=== PATIENT | female | born 1945 | race Caucasian/White ===

== ENCOUNTER 2022-02-18 05:45 | Day surgery (SDC) | payer MEDICARE, OTHER ==
[~2022-02-18] VITALS: Ht 165.1 cm; Wt 77.3 kg
[~2022-02-18 05:45] MED LIST: ASCORBIC ACID500 MG PO; CALCIUM500 MG; FLAXSEED OIL1000 M1; LEVOTHYROXINE75 MCG PO; LORAZEPAM1 MG PO; PRAVACHOL40 MG PO; PRAVASTATIN SOD10 MG PO; PREDNISONE20 MG PO; TYLENOL EXTRA500 MG PO; VITAMIN D1000 UNIT
[2022-02-18] MEDS ORDERED: MELOXICAM15 MG PO ×2 (06:09)
--- NOTE | 2022-02-18 07:22 | NUR ---
VISTED WITH PT PRIOR TO SURGERY. PT SHARED HOW LONG THEY HAD BEEN WAITING FOR THE SURGERY. WAS WITH PT IN ROOM. DR WILSON CAME IN TO TAKE PT TO SURGERY. PRAYED WITH PT AND DR WILSON.
--- NOTE | 2022-02-18 08:47 | NUR ---
02/18/22 0847 Loly Mejía 0838 PATIENT ARRIVES TO PACU UNRESPONSIVE TO PAIN. ORAL AIRWAY AND NASAL AIRWAY IN RIGHT NOSTRIL IN PLACE. RESP EVEN AND UNLABORED WITH INTERVENTION, MASK AT 10 LITERS. 0843 PATIENT OPENS EYES WITH VERBAL STIMULI. FOLLOWS COMMANDS TO OPEN MOUTH. ORAL AIRWAY AND NASAL AIRWAY REMOVED. RESP EVEN AND UNLABORED, MASK DECREASED TO 6 LITERS. PATIENT DENIES PAIN OR NAUSEA. BACK TO SLEEP WHEN NOT STIMULATED.
[2022-02-18] MEDS ORDERED: XARELTO10 MG PO ×2 (08:56)
[2022-02-18] MEDS ORDERED: SENNA LAX8.6 MG PO ×2 (08:57)
[2022-02-18] MEDS ORDERED: GABAPENTIN300 MG PO ×2 (08:57)
[2022-02-18] MEDS ORDERED: OXYCODONE HCL5 MG PO ×2 (08:57)
--- NOTE | 2022-02-18 09:33 | NUR ---
LYNDA 0920: PT IS BACK TO DS FROM PACU. SHE IS BACK TO HER BASELINE. SHE IS GIVEN ICE WATER. CALL LIGHT WITHIN REACH. SHE IS ENCOURAGED TO CONTINUE WITH DEEP BREATHS. NO ADDITIONAL NEEDS OR CONCERNS AT THIS TIME.
--- NOTE | 2022-02-18 09:44 | NUR ---
PT IS GIVEN INCENTIVE SPIROMETER AND EDUCATED ON USE PER ORDERS. PT IS ABLE TO VERBALIZE UNDERSTANDING ON PROPER USE OF THE INCENTIVE SPIROMETER.
--- NOTE | 2022-02-18 10:30 | NUR ---
PT TOLERATES A SIP OF WATER. SHE IS REPORTING LOWER BACK PAIN, HOB IS RAISED TO SEE IF THIS HELPS. HER SPINAL HAS COMPLETELY RESOLVED AT THIS TIME. SHE HAS WATER ON BEDSIDE. CALL LIGHT WITHIN REACH. SHE REPORTS PAIN 2/10 IN RIGHT HIP, DENIES NEEDING PAIN MEDS AT THIS TIME. NO ADDITIONAL NEEDS OR CONCERNS AT THIS TIME.
--- NOTE | 2022-02-18 11:32 | NUR ---
LE 1030: PT REPORTS FEELING SOMETHING SAFETY INTERN BETWEEN HER LEGS. IT IS DETERMINED THAT THE PT HAS VOIDED IN HER BED. WITH A 2ND RN, PT IS TRANSFERRED TO A BEDSIDE COMMODE, UPON STANDING THE PT'S BLADDER STARTS TO EMPTY WITHOUT THE PT BEING ABLE TO FEEL ANY FULLNESS IN HER BLADDER OR THE URGE TO GO. PT'S BED IS CLEANED UP, SHE IS PUT INTO A CLEAN GOWN. HER LULY HOSE AND SOCKS ARE CHANGED TO CLEAN ONES. SHE IS CLEANED UP USING BABY WIPES AND GIVEN A DEPENDS JUST IN CASE. HER CRYO CUFF DOES HAVE TO BE RINSED IN THE SINK DUE TO BEING SOILED WITH SOME URINE AND DRIED OFF WITH A TOWEL. PT IS RESITUATED BACK IN BED TO A COMFORTABLE POSITION. SHE WAS NAUSEATED UPON SITTING UP AT THE EDGE OF THE BED PRIOR TO TRANSFERRING TO A BEDSIDE COMMODE, WHILE SITTING ON THE COMMODE SHE STATES THAT IT GETS BETTER.
--- NOTE | 2022-02-18 11:52 | NUR ---
LYNDA 1145: PT REPORTS THAT HER PAIN IS AT A 3/10, BUT DENIES NEEDING ANYTHING FOR PAIN. SHE REPORTS THAT HER NAUSEA IS RESOLVED. SHE WOULD LIKE TO TRY SALTINE CRACKERS. HER IS GOING TO GO HOME AND COME BACK AROUND 1300. DC CRITERIA IS REVIEWED, PT AND ARE EDUCATED THAT SHE NEEDS TO HAVE SENSATION OF HER BLADDER BACK AND HAVE THE URGE TO VOID TO COUNT VOIDING.
--- NOTE | 2022-02-18 13:05 | NUR ---
1240-PATIENT STATES SHE NEEDS HER DEPENDS CHANGED. STATES "I PEE EVERYTIME I COUGH". PATEINT UP TO BEDSIDE COMMODE WITH 2 RN ASSIST. GAIT UNSTEADY. 1250-PATIENT VOIDED 300ML. NEW CHUCKS PAD LAYED ON BED AND NEW DEPENDS. 1255-PATIENT BACK TO BED. RESP EVEN AND UNLABORED. RATES PAIN 4/10 AND THIS IS TOLERABLE FOR HER AT THIS TIME. DENIES NAUSEA. SMALL AMOUNT OF DRAINAGE ON THE UPPER DRESSING. CRYO CUFF IN PLACE AND RUNNING. CALL LIGHT WITHIN REACH.
--- NOTE | 2022-02-18 13:07 | OR ---
[facility] [address], [place] [address] Signed DATE OF OPERATION: 02/18/2022 SURGEON: Mansoor Jenkins MD PREOPERATIVE DIAGNOSIS: Severe degenerative joint disease, right hip. POSTOPERATIVE DIAGNOSIS: Severe degenerative joint disease, right hip. PROCEDURE PERFORMED: Right total hip arthroplasty with Maikel. STATISTICS INTERN: Jade Peguero PA-C. Jade was present and critical for all portions of procedure. ANESTHESIA: Spinal. BLOOD LOSS: 175 mL. IMPLANTS: Katie size 5 stem with a 52 mm cup and -2.5 head. BRIEF HISTORY: Jenny is a 76-year-old female with progressive worsening of osteoarthritis. Risks and benefits of operative treatment were discussed with her and she elected to proceed. PROCEDURE IN DETAIL: Once consent was obtained, she was taken to the operating room. After adequate anesthesia she was placed in the left lateral decubitus position. All downside pressure points were well padded. An axillary roll was placed. The hip was then prepped and draped in a standard sterile fashion. Three stab incisions were made over the posterior aspect of the iliac crest and the computer array was placed. The hip was then approached through standard anterior lateral approach, was taken through skin and subcutaneous tissue. IT band was divided longitudinally along the anterior margin of the femur. The vastus lateralis was divided along the anterior margin of the femur to the tip of the trochanter. This was then subperiosteal elevated around to the level of Electronically Signed By: MANSOOR JENKINS MD 02/18/22 1307 PATIENT NAME: JENNY CLAYTON OPERATIVE REPORT DATE OF : 43 REPORT #: [id number] PHYSICIAN: MANSOOR JENKINS MD PCP: EDWAR GRIJALVA MD REPORT IS CONFIDENTIAL AND NOT TO BE RELEASED WITHOUT AUTHORIZATION [facility] [address], [place] [address] Signed the lesser trochanter. The capsule was then split and elevated off the anterior neck. A partial capsulotomy was performed. The capsule was then released from the undersurface of the greater trochanter. The hip was then verified with the computer. The hip was then dislocated and the femoral neck cut made as per the presurgical plan. The femoral head was passed off the table. The periacetabular soft tissue was removed and the fine anatomic points of the acetabulum were recorded with the computer. The robot was then brought in and the 52 reamer was reamed to the predetermined depth. I then over-reamed just a little bit. Once this was accomplished, a 52 cup was impacted in 40 degrees of abduction and 23 degrees of anteversion. The cup was quite tight and the liner was then impacted. The attention was then turned to the femoral proximal stem. This was opened using Libretto cutter followed by the Juli awl. It was then sequentially broached from a 3 to a 5 with a 5, found to be well fitting. The high offset neck and -2.5 head were positioned. The hip was then reduced, taken through range of motion and found to be stable. She was slightly long according to the computer, so we dislocated and removed the trials. The final stem was impacted until it was well-seated and a -5 head was impacted. The hip was reduced. Leg lengths were found to be good and she had excellent range of motion and stability. The wound was copiously irrigated with normal saline under pulse lavage. An IrriSept soak was done in the middle. The periarticular soft tissues were injected with 100 mL of ropivacaine and Toradol mixture. The wound was closed in layers with the capsulotomy closed with Vicryl. The vastus and IT bands closed independently using #2 Stratafix and 0 Quill for the subcutaneous tissue and 3-0 Stratafix for the skin. Dermabond was applied. The wound was dressed with an Acticoat 7 dressing. She was awakened, taken to the recovery room in satisfactory condition. All sponge, needle, and instrument counts were correct. Mansoor Jenkins MD BA/NICHOLEL /[id number] Copies: ~ Electronically Signed By: MANSOOR JENKINS MD 02/18/22 1307 PATIENT NAME: JENNY CLAYTON OPERATIVE REPORT DATE OF : 43 REPORT #: [id number] PHYSICIAN: MANSOOR JENKINS MD PCP: EDWAR GRIJALVA MD REPORT IS CONFIDENTIAL AND NOT TO BE RELEASED WITHOUT AUTHORIZATION
--- NOTE | 2022-02-18 13:33 | NUR ---
PT REPORTS THAT SHE IS FEELING GOOD. NO NAUSEA. CALL LIGHT WITHIN REACH. PAIN RATING 3-4/10. NO ADDITIONAL NEEDS OR CONCERNS.
--- NOTE | 2022-02-18 13:58 | NUR ---
PATIENTS SPOUSE ENTERS HALLWAY REQUESTING HELP AT 1105. PT REPORTS NAUSEA. ETOH PREP PAD AND COOL WASHCLOTH USED. PT PRODUCES 10ML BILE IN EMESIS BAGGY. SKIN CLEANED. MEDICATED FOR NAUSEA PER EMAR AFTER GETTING CLEARANCE FROM PROJECT CONTROLS SPECIALIST TO USE PACU ORDERS IN PHASE 2 RECOVERY
--- NOTE | 2022-02-18 14:33 | NUR ---
PT ATTEMPTS TO WORK WITH PHYSICAL THERAPY, BUT SHE GETS WOOZY AFTER A FEW STEPS. SHE WOULD LIKE TO REST A LITTLE LONGER BEFORE TRYING AGAIN. PHYSICAL THERAPY PLANS ON COMING BACK IN ABOUT 20 MINUTES. PT TOLERATED APPLE SAUCE AND CRACKERS, SHE IS AGREEABLE TO EATING SOME JELLO. SHE TOLERATES WATER. CALL LIGHT WITHIN REACH. NO ADDITIONAL NEEDS OR CONCERNS. PT'S IS AT THE BEDSIDE.
--- NOTE | 2022-02-18 15:26 | NUR ---
PHYISCAL THERAPY IS BACK TO TRY WORKING WITH THE PT AGAIN.
--- NOTE | 2022-02-18 15:55 | NUR ---
PT IS BACK FROM PHYSICAL THERAPY. SHE HAS PASSED ON THEIR END, HOWEVER SHE HAD APPROX 400CC'S OF EMESIS. PT REPORTS SHE FEELS BETTER. DR. WILSON IS CALLED AND IT IS REPORTED TO HIM THAT SHE HAS MET ALL DC CRITERIA AND PASSED PHYSICAL THERPAY. HE WOULD LIKE HER TO HAVE ANOTHER DOSE OF ZOFRAN, SOME JUICE AND CRACKERS, MAKE SURE SHE CAN KEEP THAT DOWN. IF SHE IS, SHE IS GOOD TO GO HOME.
--- NOTE | 2022-02-18 17:09 | NUR ---
PT IS DOING BETTER WITH NAUSEA AND WAKEFULLNESS AFTER ANOTHER DOSE OF ZOFRAN, SOME APLE JUICE, AND A NAP. SHE REPORTS PAIN TO BE 4/10. IS AT THE PHARMACY PICKING UP RX'S. THIS RN HELPS THE PT GET DRESSED AND KEEPS HER SITTING AT THE EDGE OF THE BED, SHE IS TOLERATING THIS WELL.
--- NOTE | 2022-02-18 17:39 | NUR ---
LE 1720: PT IS GIVEN VERBAL AND WRITTEN DC INSTRUCTIONS. SHE VERBALIZES UNDERSTANDING. QUESTIONS ARE ASKED AND ANSWERED. CHRIS, IS EDUCATED ON THE WRITTEN DC INSTRUCTIONS AND HOW TO OPERATE THE CRYO CUFF. PT IS TAKEN TO PERSONAL VEHICLE VIA , WHERE SHE IS ABLE TO TRANSFER HERSELF WITH THE USE OF HER WALKER WITHOUT INCIDENT OR ISSUES. LE 1715: PT IS EDUCATED ON FOLLOWING A CLEAR LIQUID DIET FOR THE REST OF THE DAY. SHE IS ENCOURAGED TO DRINK BROTHS, DR. WILSON ALSO SUGGESTS LIQUID IV.
== END 2022-02-18 17:30 | disposition home or self-care (01) ==
LOC: DS 05:45
PROVIDERS: ATTEND Specialist
PROC: 0SR901Z Replacement of Right Hip Joint with Metal Synthetic Substitute, Open Approach (ICD-10-PCS; principal; 2022-02-18 06:30)
DX: M16.11 Unilateral primary osteoarthritis, right hip (principal)
CPT/HCPCS: 01214; 72170; 97162; A9270; C1713; C1776; J0690; J1100; J1885; J2250; J2370; J2405; J2704; J2765; J3010; J7121

== ENCOUNTER 2022-02-20 10:32 | Emergency (ER) | payer MEDICARE, OTHER ==
[~2022-02-20] VITALS: Ht 165.1 cm; Wt 77.1 kg
[~2022-02-20 10:32] MED LIST changes: +GABAPENTIN300 MG PO; +MELOXICAM15 MG PO; +OXYCODONE HCL5 MG PO; +SENNA LAX8.6 MG PO; +XARELTO10 MG PO
--- OUTSIDE RECORDS SUMMARY | 2022-02-20 10:35 | XMS ---
PreManage Notification: JENNY CLAYTON Security Director Of Channel Marketing Events No recent Security Events currently on file [facility] There are no care providers on record at this time. Ernesto has no Care Guidelines for this patient. [facility] VISIT COUNT (12 MO.) 1 [facility] TOTAL 1 NOTE: Visits indicate total known visits. ED/UCC VISIT TRACKING (12 MO.) 02/20/2022 10:33 [facility] [place] TYPE: Emergency COMPLAINT: - FEVER INPATIENT VISIT TRACKING (12 MO.) No inpatient visits to display in this time frame [email or web address]
== END 2022-02-20 13:44 | disposition home or self-care (01) ==
LOC: ED 10:32
DX: U07.1 COVID-19 (principal); E03.9 Hypothyroidism, unspecified; Z88.2 Allergy status to sulfonamides; Z79.899 Other long term (current) drug therapy
CPT/HCPCS: 36415; 71045; 80053; 81001; 83605; 85025; 87502; A9270; J7030; U0003

== ENCOUNTER 2022-03-13 05:44 | Inpatient (IN) | payer MEDICARE, OTHER ==
[~2022-03-13] VITALS: Ht 165.1 cm; Wt 76.0 kg
--- OUTSIDE RECORDS SUMMARY | 2022-03-13 05:46 | XMS ---
PreManage Notification: JENNY CLAYTON Security Metal Burnisher Events No recent Security Events currently on file CRITERIA MET - [facility] - [facility] - 2 Visits in 30 Days CARE PROVIDERS There are no care providers on record at this time. Ernesto has no Care Guidelines for this patient. [facility] VISIT COUNT (12 MO.) 2 [facility] TOTAL 2 NOTE: Visits indicate total known visits. ED/C VISIT TRACKING (12 MO.) 03/13/2022 05:45 [facility] COMPLAINT: - ABD AND FLANK PAIN 02/20/2022 10:[address] [facility] [place] TYPE: Emergency COMPLAINT: - FEVER DIAGNOSES: - COVID-19 - Fever, unspecified - Hypothyroidism, unspecified - Allergy status to sulfonamides - Other prison (current) drug therapy INPATIENT VISIT TRACKING (12 MO.) No inpatient visits to display in this time frame [id number]
--- NOTE | 2022-03-13 12:25 | NUR ---
REPORT RECEIVED FROM MANAGER ASSURANCE TIMOTHY. CARE OF PT ASSUMED AT THIS TIME. PT ARRIVED VIA STRETCHER WITH FAX MACHINE OPERATOR. ALL BELONGINGS IN PT'S FAMILY'S POSSESSION. PT ABLE TO TRANSFER SELF FROM STRETCHER TO BED, BUT BECAME NAUSEATED WITH MOTION. PT HAD A 300 ML YELLOW COLORED EMESIS AND IS DRY HEAVING. PT GIVEN PRN MEDICATION FOR NAUSEA AT THIS TIME (SEE EMAR). THIS RN REMAINS AT BEDSIDE TO ADMIT PT.
--- NOTE | 2022-03-13 12:55 | NUR ---
ADMISSION COMPLETED AND MEDICATIONS ADMINISTERED. PT ALERT AND ORIENTED, BUT NOW SLIGHTLY DROWSY FROM PRN NAUSEA MEDICATION. PT REPORT NAUSEA HAS GONE AWAY AT THIS TIME. ABDOMEN IS TENDER AND BOWEL TONES ARE HYPERACTIVE. PT REPORT PAIN AT 3/10, DENIES NEED FOR MEDICATION. PT HYPERTENSIVE IN THE 190S SYSTOLICALLY UPON ARRIVAL BUT AFTER N/V EPISODE RESOLVED, SYSTOLIC PRESSURE DOWN INTO THE 160S. IV ROCEPHIN GIVEN AND 500 ML IV FLUID BOLUS NOW INFUSING. PLAN OF CARE ESTABLISHED WITH FAMILY AND PT. ALL QUESTIONS ANSWERED. CALL LIGHT WITHIN REACH. WILL CONTINUE TO MONITOR.
--- NOTE | 2022-03-13 13:53 | NUR ---
500 ML BOLUS COMPLETED. PT SLEEPY STATES SHE IS NOT NAUSEATED AT THIS TIME.
[2022-03-13] MEDS ORDERED: CIPROFLOXACIN500 MG PO (15:22)
[2022-03-13] MEDS ORDERED: METRONIDAZOLE500 MG PO (15:23)
[2022-03-13] MEDS ORDERED: PRAVASTATIN SOD40 MG PO (15:27)
--- NOTE | 2022-03-13 15:29 | NUR ---
RESPONDED TO PT CALL LIGHT. PT REQUESTING WATER. PT REPORTS A MILD AMOUNT OF PAIN, DENIES NEED FOR PAIN MEDICAITON AT THIS TIME. DENIES NAUSEA. CALL LIGHT WITHIN REACH. WILL CONTINUE TO MONITOR.
[2022-03-13] MEDS ORDERED: ASPIR-TRIN325 MG PO (15:41)
--- NOTE | 2022-03-13 15:42 | NUR ---
MED REC COMPLETE
[2022-03-13] MEDS ORDERED: OXYCODONE HCL5 MG PO (15:45)
--- NOTE | 2022-03-13 16:13 | NUR ---
ASSESSMENT COMPLETED. AMBULATED TO BATHROOM TO VOID. USED 4WW. STEADY ON FEET. PT GIVEN PRN OXYCODONE FOR 4/10 PAIN. DENIES NAUSEA. HAS BEEN ABLE TO TOLERATE SIPS OF WATER. CALL LIGHT WITHIN REACH.
--- NOTE | 2022-03-13 18:48 | NUR ---
PT UP TO BATHROOM INDEPENDENTLY. DENIES PAIN OR NAUSEA. IN ROOM WITH PT AT THIS TIME. NO FURTHER NEEDS.
--- NOTE | 2022-03-13 19:38 | NUR ---
REPORT RECEIVED FROM JAYLENE ANG. PT IN ROOM WITH , HAS JUST GOTTEN BACK FROM USING BR.
--- NOTE | 2022-03-13 20:15 | NUR ---
IN TO CHECK ON PT, PT RESTING WITH EYES CLOSED, RESP EVEN AND UNLABORED, WASH RAG OVER EYES.
--- NOTE | 2022-03-13 21:00 | NUR ---
IN TO CHECK ON PT AND DO ASSESSMENT, PT REPORTS PAIN IS STARTING TO COME BACK SOME. NO C/O NAUSEA AT THIS TIME, STATES PAIN IS MOSTLY IN LOWER LEFT ABDOMEN AND AROUND TO FLANK WORSE WITH MOVEMENT. ALERT AND ORIENTED AND DENIES NEEDS AT THIS TIME.
--- NOTE | 2022-03-13 22:04 | NUR ---
IN TO CHECK ON PT, PAIN MEDICATION GIVEN PER REQUEST, 4MG IV MORPHINE FOR 5/10 LOWER LEFT ABDOMINAL PAIN. PT CONTINUES TO DENY NAUSEA AT THIS TIME.
--- NOTE | 2022-03-14 00:15 | NUR ---
IN TO CHECK ON IV ALARM, PT AWAKENS WITH ALARM, DENIES NEED FOR PAIN MEDICATION AT THIS TIME, STATES SHE HAS BEEN ABLE TO SLEEP.
--- NOTE | 2022-03-14 01:12 | NUR ---
PATIENT'S IV FLUIDS REPLACED, IV SITE WNL. PATIENT UP TO THE BATHROOM. STAND BY ASSIST MINIMAL WITH FFW. PATIENT TOLERATES WELL. PATIENT REPORTS RETURN OF ABD PAIN 5/10 AFTER VOIDING OR WITH MOVEMENT. NO NAUSEA. PRN OXY PROVIDED. PATIENT BACK IN BED, RESTING WITH EYES CLOSED. CALL LIGHT IN REACH.
--- NOTE | 2022-03-14 02:43 | NUR ---
PT LYING IN BED, EYES CLOSED, RESP EVEN AND UNLABORED.
--- NOTE | 2022-03-14 04:00 | NUR ---
PT RESTING, EYES CLOSED, RESP EVEN AND UNLABORED.
--- NOTE | 2022-03-14 05:51 | NUR ---
PT CALLS FOR PAIN MEDICATION, OXYCODONE GIVEN FOR 4/10 LEFT ABDOMINAL PAIN.
--- NOTE | 2022-03-14 07:03 | NUR ---
REPORT GIVEN TO EZIO ANG, PT TRANSFERRED TO MED SURG FLOOR WITH RN AND LINUX NETWORK ADMINISTRATOR.
--- NOTE | 2022-03-14 07:35 | NUR ---
Patient to the medical floor from CCU department. Patient alert and oriented x4. Vital signs are stable at this time. Morphine 4mg IV admin for reported 7/10 abd pain. No current needs at this time. Personal supplies and call light within reach.
--- NOTE | 2022-03-14 11:56 | NUR ---
Morphine 4mg IV admin at this time for reported 7/10 abd/flank pain. Patient No further needs at this time. Personal supplies and call light within reach. No current needs, personal supplies and call light within reach.
--- NOTE | 2022-03-14 14:12 | NUR ---
PT ALERT, ORIENTED AND SUPPORTED BY HER GRAND DAUGHTER ROSIE. PT SAID HER PAIN IS AT 5, AND LOCALIZED ON HER L SIDE. GAVE ENCOURAGEMENT, PT FEELS WELL CARED FOR. PT REQUESTED PRAYER, WILL FOLLOW NEEDED
--- NOTE | 2022-03-14 15:40 | NUR ---
Spoke with pt. She states she lives with her spouse in a house with 2 steps. She recently had a total hip surgery 3 weeks ago. She denies issues getting in and out of the house, but is not back to driving yet. She is doing PT at the [facility]. She is currently using a walker and a cane. She denies financial issues and plans on dc to home with her spouse, once she is cleared medically.
--- NOTE | 2022-03-14 18:18 | NUR ---
Morphine 15mg po admin for reports of 8/10 abd pain.
--- NOTE | 2022-03-14 20:29 | NUR ---
VS AND I&O'S COMPLETE. pt UP TO VOID SBA WITH FWW AND BACK TO BED-STEADY ON FEET. PRIMARY RN VERONA IN ROOM FOR MED PASS. CALL LIGHT IN REACH OF pt.
--- NOTE | 2022-03-14 20:30 | NUR ---
on room air, clear lungs, ivf infusing LAC, cooperative with assessment. no c/o pain at this time, abd soft HEA, no bm for a few days. R leg trace edema. helps with turning and repositioning. call light and fluidsa t hands reach
--- NOTE | 2022-03-14 22:10 | NUR ---
Pt up to br, voided, back to bed SBA, IVF infusing, c/o 10/05 abd pain, medicated with Morphine 15mg po, repositions self in bed, call light and fluids at bedside, asks not to be bother til her next pain med due as she has nort slept,
--- NOTE | 2022-03-15 02:03 | NUR ---
NEW BAG INFUSING, GARBAGES EMPTIED. AWARE THAT PRIMARY RN WILL BE IN TO ADMINISTER MEDICATIONS
--- NOTE | 2022-03-15 02:13 | NUR ---
up to br, voided, back to bed, c/o increased abd pain, medicated with Morphine 15mg po, c/.o increased urinary incontinence, attends inplace
--- NOTE | 2022-03-15 05:20 | NUR ---
PT ON ROOM AIR, CLEAR LUNGS, IVF INFUSING W/O PROBLEMS, HAS TOLERATED SIPS OF FLUIDS, NO EMESIS, DECLINED MIRALAX GIVEN EARLIER DUE TO NOT LIKING THE FLAVOR, RECEIVED PRUNE JUICE IN AM, DECLINES MORE PRUNE JUICE THIS SHIFT. NO BM. C/O INCREASED URINARY LOWER ABD PAIN AND INCREAESD URINARY DRIBBLING AND INCONTINENCE, USES ATTENDS, MEDICATED WITH MORPHINE 15MG PO EVERY FOUR HOURS THIS SHIFT, GOOD TO FAIR PAIN CONTROL. INDEPENDENT , PLEASANT AND COOPERATIVE USES CALL LIGHT. VOIDING SMALL AMOUNT/FREQUENT/ QS URINE WHEN UP TO BR,
--- NOTE | 2022-03-15 07:31 | NUR ---
Patient resting in bed, eyes closed, respirations even and non labored. No notable distress. Personal supplies and call light within reach.
--- NOTE | 2022-03-15 09:02 | NUR ---
VISITING WITH .Plans to go home with when discharged.No needs identified for discharge. Will continue to reassess discharge plan.
--- NOTE | 2022-03-15 09:15 | NUR ---
PATIENT IN BED AFTER MEAL, FAMILY IN ROOM. VITALS AND I/O'S COMPLETED. PT HAD NO OTHER NEEDS FOR THIS BANKING ANALYST. CALL LIGHT WITHIN REACH.
--- NOTE | 2022-03-15 10:46 | NUR ---
Morphine 15mg po admin for reports of 6/10 abd pain. Patient encouarged to get up for a walk and shower this morning. Patient requesting to wait until after she eats lunch to take a shower. Family member at bedside. No current needs, personal supplies and call light within reach.
--- NOTE | 2022-03-15 12:21 | NUR ---
PT ALERT, ORIENTED AND VISITING WITH HER GRAND Anita VELEZ. PT FEELS BETTER, SLEPT WELL. HAD GOOD VISIT, PT REQUESTED PRAYER. WILL FOLLOW
--- NOTE | 2022-03-15 14:18 | NUR ---
PT LYING IN BED WATCHING TV. VITALS AND I/O'S COMPLETED, ICE WATER GIVEN. PT HAS NO OTHER NEEDS AT THIS TIME. CALL LIGHT WITHIN REACH.
--- NOTE | 2022-03-15 18:20 | NUR ---
Admin tylenol 500mg po for reports of 6/10 left flank pain.
--- NOTE | 2022-03-15 18:40 | NUR ---
PATIENT IN BED WATCHING TV WITH FAMILY. VITALS AND I/O'S COMPLETED. PT HAS NO OTHER NEEDS AT THIS TIME. CALL LIGHT WITHIN REACH.
--- NOTE | 2022-03-15 19:41 | NUR ---
PT IN BED, ROOM AIR, VISITING WITH FAMILY, NO C/O PAIN
--- NOTE | 2022-03-15 20:07 | NUR ---
pt called, iv alarming. now infusing without alarms, iv wnl.
--- NOTE | 2022-03-16 01:29 | NUR ---
pt awakes easily, on room air, cooperative with assessment. IVF infusing w/o problems. medicated with Tylenol per c/o abd pain. tolerating liquids well, no further c/o n/v. call light at hands reach
--- NOTE | 2022-03-16 04:59 | NUR ---
up to br, was incontinent of urine and bowel, did her own christos care, back to bed, c/o abd pain "I only hurt when I get up". abd soft, HEA, medicated with morphine po. tolerating liquids well, no further c/o n/v. IVF infusing w/o problems
--- NOTE | 2022-03-16 05:01 | NUR ---
Pt independent in room, up to br , voiding QS, was incontinent of urine and , was also incontinent of liquid soft bm this am. does own christos care. Back to bed, tolerated well. Has been medicated per c/o n/v with zofran x1, per abd pain with tylenol x1 and morphine po x2, effective. aram, cooperative, on room air, uses call light
--- NOTE | 2022-03-16 07:00 | NUR ---
BEDSIDE HANDOFF REPORT RECEIVED FROM AQUACULTURE DIRECTOR RN. PT RESTING IN BED. IV FLUIDS INFSUING LR AT 75ML/HR.
--- NOTE | 2022-03-16 09:20 | NUR ---
PT RESTING IN BED. P TCOMPLAIN TOF LOWER LEFT ABD PAIN 5/10. PT ON ROOM AIR, LUNG SOUNDS CLEAR. BOWEL TONES ACTIVE, POOR APPETITE, HAS NOT HAD ANY FURTHER BOWEL MOVEMENTS SINCE THIS AM. PT WITHOUT EDEMA, CMS INTACT. IV ROCEPHIN INFUSING. DISCUSSED PLAN OF CARE FOR THE DAY. PT DENIES OTHER NEEDS AT THIS TIME.
--- NOTE | 2022-03-16 09:31 | NUR ---
PATIENT IN BED AFTER MEAL. VITALS AND I/O'S COMPLETED, ICE WATER GIVEN. PT HAS NO OTHER NEEDS AT THIS TIME. CALL LIGHT WITHIN REACH.
--- NOTE | 2022-03-16 11:13 | NUR ---
STRAIGHT CATH FOR URINE SAMPLE COLLECTED AND SENT, 750ML OF URINE EMPTIED, PT REPORT OF LESS ABD PAIN AFTER STRAIGHT CATH, MD NOTIFIED. NEW IV STARTED TO LEFT AC 20G, LABS COLLECTED. PT GIVEN GASTROGRAFIN. SPOUSE AT BEDSIDE, UPDATED ON PT CARE.
--- NOTE | 2022-03-16 11:55 | NUR ---
PT TO CT SCAN WITH BUSINESS CONSULTANT.
--- NOTE | 2022-03-16 12:40 | NUR ---
PT RETURNED FROM CT SCAN, URGE TO URINATE, BLADDER SCAN BEFORE VOIDING 611, PT ABLE TO VOID 50ML. DR. DUNLAP NOTITED, VERBAL ORDER TO INSERT INDWELLING CATHETER, COMPLETED. IV FLUIDS RESUMED. PT CONTINUES TO REPORT PAIN 5/10, GIVEN TYLENOL. PT DENIES OTHER NEEDS AT THIS TIME.
--- NOTE | 2022-03-16 13:53 | NUR ---
PT IN BED AFTER MEAL. VITALS AND I/O'S COMPLETED. PT HAS NO OTHER NEEDS AT THIS TIME. CALL LIGHT WITHIN REACH.
--- NOTE | 2022-03-16 14:36 | NUR ---
PT UPDATED ON PLAN OF CARE, INCLUDING U/S IN AM, MIRALAX AND DULCOLAX. PT DENIES OTHER NEEDS AT THIS TIME.
--- NOTE | 2022-03-16 15:31 | NUR ---
PT WITH MEDIUM BOWEL MOVEMENT, DECREASED PAIN IN LEFT LOWER ABD. PT UNSURE ABOUT DRINKING MIRALAX. DISCUSSED WITH DR. DANIEL, RECOMMEND TO CONTINUE WITH MIRALAX, PT AGREEABLE TO DRINK 1 OF 3 BOTTLES AT THIS TIME. PT DENIES OTHER NEEDS AT THIS TIME.
--- NOTE | 2022-03-16 17:21 | NUR ---
PT RATING PAIN 3/10, HEADACHE, LEFT LOWER ABD PAIN IMPROVING. PT DECLINING MORPHINE AT THIS TIME, GIVEN 500MG TYLENOL. PT DENIES OTHER NEEDS AT THIS TIME.
--- NOTE | 2022-03-16 17:27 | NUR ---
PT ON ROOM AIR, LUNG SOUNDS CLEAR. PT WITH PAIN TO LEFT LOWER ABD, WORSE THAN YESTERDAY. REPEAT CT SCAN AND UA, PT FOUND TO HAVE URINARY RETENTION, INDWELLING CATH PLACED. PT WITH MEDIUM BM THIS AFTERNOON. PAIN HAS IMPROVED THROUGHOUT SHIFT NOT 07/05. PT SBA TO BATHROOM. PT WILL BE NPO AT MIDNIGHT FOR U/S OF RUQ TOMORROW MORNING.
--- NOTE | 2022-03-16 18:37 | NUR ---
PATIENT IN BED AFTER MEAL, WATCHING TV WITH SPOUSE. VITALS AND I/O'S COMPLETED. KWON DRAINED AND DOCUMENTED. PT HAS NO OTHER NEEDS AT THIS TIME. CALL LIGHT WITHIN REACH.
--- NOTE | 2022-03-16 22:03 | NUR ---
On room air, coop with assessment, declines need for morphine, repositions self in bed, having loose stools, f/c not chronic, patent, draining clear yellow urine. abd soft, tender L side, HEA. tolerating liquids well, aware of NPO after midnight. pleasant and coop. IVF infusing RH, SL LFA not patent, dc'd. cooperative. call light and fluids at hands reach
--- NOTE | 2022-03-16 23:38 | NUR ---
c/o abd pain, medicated with tylenol
--- NOTE | 2022-03-17 04:40 | NUR ---
PT HAS SLEPT OFF AND ON THIS SHIFT. ON ROOM AIR, CLEAR LUNGS, C/O LOW ABD PAIN, MEDICATED WITH TYLENOL, EFFECTIVE. WAS INCONTINENT OF SEMILIQUID BM, USES ATTENDS. DOES OWN PERICARE. F/C NOT CHRONIC. PATENT. IVF INFUSING W/O PROBLEMS. NPO SINCE MIDNIGHT FOR POSSIBLE AM PROCEDURE. PT INDEPENDENT IN ROOM WITH SBA ASSIST AT TIMES, PLEASANT, ALERT AND ORIENTED, COOPERATIVE
--- NOTE | 2022-03-17 07:58 | NUR ---
ULTASOUND TECH AT BEDSIDE. PT DENIES OTHER NEEDS AT THIS TIME.
--- NOTE | 2022-03-17 08:01 | NUR ---
PT AM CARE COMPLETED. PT WANTED TO LAY IN BED FOR THE TIME BEING. THIS EDITOR CONTINUITY AND SCRIPT CHANGED LINEN, INCLUDING WHAT THE PATIENT WAS WEARING. PT HAS NO OTHER NEEDS AT THIS TIME. CALL LIGHT WITHIN REACH.
--- NOTE | 2022-03-17 09:43 | NUR ---
PATIENT IN BED AFTER MEAL. VITALS AND I/O'S COMPLETED. KWON DRAINED AND DOCUMENTED. PT HAS NO OTHER NEEDS AT THIS TIME. CALL LIGHT WITHIN REACH.
--- NOTE | 2022-03-17 12:40 | NUR ---
PT SITTING ON EDGE OF BED, EATING LUNCH. AT BEDSIDE. PT RATING PAIN 3/10, TOLERABLE. PT DENIES NEEDS AT THIS TIME.
--- NOTE | 2022-03-17 13:52 | NUR ---
PT IN BED AFTER MEAL. VITALS AND I/O'S COMPLETED. KWON DRAINED AND DOCUMENTED. PT HAS NO OTHER NEEDS AT THIS TIME. CALL LIGHT WITHIN REACH.
--- NOTE | 2022-03-17 20:48 | NUR ---
CHARGE ROUNDING COMPLETED. MORPHOLOGIST PRESENT IN ROOM.
--- NOTE | 2022-03-17 21:04 | NUR ---
Pt awake, watching tv, on room air, tolerating liquids well, no emesis, denies c/o abd pain, "My pain is on the loft lower abd and to my back" But I have no pain right now, Maksim comfortable". repositions self in bed, independent. abd soft, tender low left quad, HEA, no bm this shift, f/c not chronic, patent, draining clear yellow urine. IVF infusing RW. healing incisional scar R hip, trace edema to R leg, much improved. call light and fluidsa t hands carrie, snacks given on request. Pt on regular diet now. Alert, orineted, pleasant and cooperative
--- NOTE | 2022-03-17 22:55 | NUR ---
c/o abd left lower quad pain, medicated with tylenol 500mg po. warm pad to low abd, pillow to left back. cooperative, tolerating liquids
--- NOTE | 2022-03-18 07:40 | NUR ---
PT AWAKE WATCHING TV AT TIME OF SHIFT REPORT. SHE DENIES PAIN OR NEEDS OF. FRESH H20 TO BEDSIDE CALL LIGHT IN REACH.
--- NOTE | 2022-03-18 09:23 | NUR ---
PT ENCOURAGED TO AMBULATE THE HALLS TODAY AND BE UP OUT OF BED. SHE EATS ONLY BITES OF MORNING MEAL, CHOICES OFFERED AND MENU PROVIDED FOR LATER MEALS. EDUCATION R/T CATH CARE PROVIDED PT. AGREES TO DO PERSONAL CARES INSTRUCTED DENIES QUESTIONS OR FURTHER NEEDS OF, CARE ITEMS PROVIDED.
--- NOTE | 2022-03-18 10:19 | NUR ---
DR DANIEL IN TO SEE PT, GRANDDAUGHTER IS PRESENT
--- NOTE | 2022-03-18 10:54 | NUR ---
DOYLE JIMENEZ'Tan PER MD ORDER, WELL TOLERATED BY PT. EDUCFREDIION PROVIDED
[2022-03-18] MEDS ORDERED: CEFDINIR300 MG PO (11:21)
--- NOTE | 2022-03-18 12:14 | NUR ---
PT AMBULATING ROOM INDEPENDANTLY DENIES NEED TO VOID SINCE DC OF KWON CATH. SITTING ON EDGE OF BED PLAYING GAMES. NO C/O PAIN, NAUSEA, OR OTHER DISCOMFORTS SO FAR THIS SHIFT
--- NOTE | 2022-03-18 13:55 | NUR ---
PT HAS PASSED LESS THAN 50 MLS OF URINE 2X SINCE KWON DC'D. BOTH TIMES WERE WHEN TRYING TO HAVE A BM. UP TO TOILET AT THIS TIME TO EMPTY BLADDER FOR SCAN. VOIDS LESS THAN 50 SCAN SHOWS 35 REMAINING IN BLADDER. ENCOURAGED PT TO DRINK PLENTY OF FLUID SO WE CAN BE CERTAIN SHE IS ABLE TO EMPTY HER BLADDER PRIOR TO DC
--- NOTE | 2022-03-18 14:35 | NUR ---
SPOUSE IN ROOM, DR. DANIEL CALLED AND LET KNOW THAT THEY WOULD LIKE TO VISIT WITH HIM. DR. DANIEL INDICATED THAT HE WOULD COME AND TALK WITH PATIENT.
--- NOTE | 2022-03-18 14:38 | NUR ---
PT RESTING IN BED, WITH GRAND.DAUGHTER ROSIE WORKING REMOTELY. PT IS PLEASANT, BUT SHARED THAT THE SOURCE HAS NOT BEEN LOCATED YET. GAVE ENCOURAGEMENT, PT REQUESTED PRAYER. PLAN IS TO DC TODAY. WILL FOLLOW NEEDED
--- NOTE | 2022-03-18 15:30 | NUR ---
PT FAMILY HAS QUESTIONS DR DANIEL RETURNS TO THE ROOM. ALL QUESTIONS ANSWERED, ALL CONCERNS ADDRESSED
--- NOTE | 2022-03-18 16:16 | NUR ---
PT ABLE TO VOID 300MLS 35 MLS REMAIN IN BLADDER PER SCAN. PT DENIES DIFFICUTLY PASSING THE FLUID AND STATES SHE FEELS RELIEVED.
--- NOTE | 2022-03-18 16:43 | NUR ---
PT WAS C/O INCREASED SIDE PAIN TOO EARLY FOR TYLENOL NOT BAD ENOUGH FOR MORPHINE. CONTACTED DR DANIEL ORDERS FOR IBUPROFEN RECEIVED. PT NOW REPORTS PAIN HAS SUBSIDED. DENIES OTHER DISCOMFORTS OR NEEDS
--- NOTE | 2022-03-18 19:30 | NUR ---
SHIFT REPORT RECEIVED FROM MARÍA ANG. PT RESTING IN BED, EYES CLOSED. RR EVEN, UNLABORED. CALL LIGHT IN REACH.
--- NOTE | 2022-03-18 20:00 | NUR ---
ASSESSMENT, VS AND I&O COMPLETED. PT REPORTS 2/10LEFT LOWER ABD PAIN, DENIES NEED FOR INTERVENTION AT THIS TIME. GCS 15, A&O X4, LUNGS CLEAR, HEART TONES REGULAR. ABD SOFT, TENDER, BOWEL TONES ACTIVE. IV FLUSHED WELL, CDI, WNL. CMS INTACT. PT HAS TRACE BLE EDEMA. WARM PACK PROVIDED. NO OTHER NEEDS. CALL LIGHT IN REACH.
--- NOTE | 2022-03-18 20:08 | NUR ---
PT STATES SHE HAS 3/10 LOWER LEFT ABD PAIN, PRN PAIN MED PROVIDED. SCHEDULED MED PROVIDED. NO OTHER NEEDS. CALL LIGHT IN REACH.
--- NOTE | 2022-03-18 21:36 | NUR ---
pt reports pain is still at a 3/10, prn pain med provided. no other needs. call light in reach.
--- NOTE | 2022-03-18 23:26 | NUR ---
SHIFT REPORT GIVEN TO LIA LANDIN RN.
--- NOTE | 2022-03-18 23:46 | NUR ---
PATIENT HANDOFF FROM CHIARA ANG. PATIENT APPEARS TO BE SLEEPING SOUNDLY, NO NEEDS AT THIS TIME. CALL LIGHT WITHIN REACH.
--- NOTE | 2022-03-19 03:06 | NUR ---
PATIENT RESTING WITH EYES CLOSED. APPEARS CALM AND RELAXED. CALL LIGHT WITHIN REACH.
--- NOTE | 2022-03-19 03:17 | NUR ---
patient up to bathroom. voided 300 ml of urine. Rates pain 5/10 on pain scale, states pain wraps around back like belt from the left side lateral side and left lower quadrant.
--- NOTE | 2022-03-19 04:09 | NUR ---
TELEPHONE CALL TO DR. DANIEL. REPORTED PATIENT'S ELEVATED BP 181/78 MAP 104. AND PATIENT'S PAIN 5/10 ON PAIN SCALE. NEW ORDER FOR IV HYDRALAZINE 10MG Q4PRN FOR SYSTOLIC PRESSURES > 160. REPORTED PVR [address] DANIEL VERBALIZED TO CONTINUE TO BLADDER SCAN AFTER VOIDS TO MONITOR IF PATIENT NEEDS KWON PLACED BEFORE DISCHARGING HOME. REPORTED LAST EKG ON FILE IN THE PCI WAS FROM 2017. DR. DANIEL REPORTED THERE WAS NO NEED TO GET AN EKG AT THIS TIME IF THE PATIENT WAS NOT HAVING CHEST PAIN. UPDATED PATIENT ON PLAN OF CARE. PATIENT VERBALIZED UNDERSTANDING AND WILLINGNESS TO FOLLOW POC.
--- NOTE | 2022-03-19 04:45 | NUR ---
PATIENT TOLERATED IV HYDRALAZINE WELL. PROVIDED PATIENT EDUCATION WITH SIDE EFFECTS. BP 147/53 (76). PROVIDED WARM BLANKETS, CALL LIGHT WITHIN REACH. NO OTHER NEEDS AT THIS TIME. PATIENT REPORTS PO TYLENOL AND IBUPROFEN EFFECTIVE BRINGING PAIN TO 2/10 ON PAIN SCALE.
--- NOTE | 2022-03-19 06:31 | NUR ---
RT IN ROOM TO COLLECT EKG FOR CHEST TIGHTNESS.
--- NOTE | 2022-03-19 06:56 | NUR ---
ORTHO VITAL SIGNS COLLECTED. PATIENT TOLERATED WELL. CHEST TIGHTNESS HAS RESOLVED. PATIENT BACK TO BED, PATIENT REPORTS "I FEEL TIRED". CALL LIGHT WITHIN REACH.
--- NOTE | 2022-03-19 07:18 | NUR ---
PT SLEEPING SOUNDLY AT TIME OF SHIFT REPORT, LEFT UNDISTURBED. FRESH H20 TO BEDSIDE, CALL LIGHT IN REACH
--- NOTE | 2022-03-19 07:51 | EKG ---
[facility] [address] [place] [address] Signed Normal sinus rhythm Nonspecific ST and T wave abnormality Abnormal ECG When compared with ECG of 07-AUG-2016 17:31, T wave inversion now evident in Lateral leads Confirmed by Eric Daniel MD () on 03/19/2022 7:51:42 AM Electronically Signed By: ERIC DANIEL MD 03/19/22 075 PATIENT NAME: MATILDEJENNYNEFTALY WEBB Electrocardiogram DATE OF : 43 PHYSICIAN: ERIC DANIEL MD REPORT #: [id number] REPORT IS CONFIDENTIAL AND NOT TO BE RELEASED WITHOUT AUTHORIZATION
--- NOTE | 2022-03-19 09:04 | NUR ---
PT UP TO TOILET VOIDS 400MLS. BLADDER SCANNED IMMEDIATELY AFTER 88 MLS RESIDULE.
--- NOTE | 2022-03-19 09:08 | NUR ---
FAMILY FRIEND, WHO IS A RN, COMES TO MEET WITH PT AND DR DANIEL QUESTIONS ASKED AND ANSWERED. PT REMAINS RESTING IN BED, GRANDDAUGHTER IS PRESENT. C/O PAIN 5/10 LOWER LEFT FLANK, IT WAS YESTERDAY. RESOLVES WITH TYLENOL AND IBUPROFEN, NEVER SEEMS TO GET OVER 5/10 RATING. ALSO DESCRIBES SENSATION OF A BAND ACROSS HER EPIGASTRIC AREA THAT HAS BEEN PRESENT OFF AND ON EVEN PRIOR TO THIS HOSPITALIZATION. DESCRIBED NOT PAINFUL BUT RATHER A PRESSURE THOUGH HER PANTS ARE TOO TIGHT. PT EATS A SMALL AMOUNT OF BREAKFAST DENIES NEED OF OTHER ITEMS. PLANS TO SHOWER LATER THIS SHIFT AND DO SOME WALKING.
--- NOTE | 2022-03-19 09:50 | NUR ---
Spoke with Erika. She states she is not feeling well enough to discharge. She states pain is better, but remains in her back. She feels she is having other issues, but is not sure of what. States her family, Phoebe is a nurse and is advocating for her to have a hydascan. Dr. Hair assessed pt and her imaging and did not feel this was needed. Discussed with pt this is an OP procedure and she would have to follow up with a different Dr. She states she would consider this. Encouraged her to discuss with Dr. Coulter when he arrives. Granddaughter in room.
--- NOTE | 2022-03-19 11:25 | NUR ---
PT TO THE SHOWER DENIES NEED OF ASSIST. CALLS FROM SHOWER FEELING WEAK, UNABLE TO COMPLETE DRESSING OF LE. PT ASSISTED AND SBA TO BED. VITALS TAKEN NOTHING OUT OF NORMAL RANGE. RESTING NOW AGREES SHE FEELS SOMEWHAT BETTER BUT JUST WEAK
--- NOTE | 2022-03-19 12:10 | NUR ---
DR DANIEL IN TO SEE PT, PT GRANDDAUGHTER IS PRESENT. DR AND PT SPEAK AT LENGTH REGAURDING PT SYMPTOMS AND PLAN OF CARE. QUESTIONS ASKED AND ANSWERED. PT EXPRESSES OPINION AND PREFERENCE, DC PRO'S AND CON'S DISCUSSED AT LENGTH.
[2022-03-19] MEDS ORDERED: COLACE100 MG PO (13:49)
[2022-03-19] MEDS ORDERED: MIRALAX17 GM PO (13:49)
[2022-03-19] MEDS ORDERED: CEFDINIR300 MG PO (13:49)
--- NOTE | 2022-03-19 14:04 | NUR ---
CHECKING ON PT, SHE IS IN SHOWER. GRAND.D IN RM. WILL FOLLOW
--- NOTE | 2022-03-19 14:33 | NUR ---
PT HAS FAMILY AND FRIENDS PRESENT X5. DC INSTRUCTIONS GIVEN SHE DENIES QUESTIONS VERBALIZES UNDERSTANDING
== END 2022-03-19 15:05 | disposition home or self-care (01) | DRG 392 ==
LOC: ED 05:44 → CCU 05:46 → MS 03-14 07:11
PROVIDERS: ADMIT Internal Medicine; ATTEND Family Medicine
DX: R10.9 Unspecified abdominal pain (principal); K59.03 Drug induced constipation; Z20.822 Contact with and (suspected) exposure to COVID-19; R33.9 Retention of urine, unspecified; E78.5 Hyperlipidemia, unspecified; E03.9 Hypothyroidism, unspecified; T40.2X5A Adverse effect of other opioids, initial encounter; Z96.641 Presence of right artificial hip joint; Z90.710 Acquired absence of both cervix and uterus; Z98.890 Other specified postprocedural states; Z88.2 Allergy status to sulfonamides; Z79.2 Long term (current) use of antibiotics; Z79.82 Long term (current) use of aspirin; Z79.899 Other long term (current) drug therapy
CPT/HCPCS: 36415; 51701; 74177; 76705; 80048; 80053; 80076; 81001; 81003; 83690; 85025; 85651; 86140; 87502; 93005; 93010; 99285-25; A9270; J0360; J0696; J1650; J1885; J2270; J2405; J2550; J2765; J7121; Q9967; U0003